=== PATIENT | male | born 1995 | race Caucasian/White ===

== ENCOUNTER 2020-07-10 18:32 | Emergency (ER) | payer OTHER ==
[~2020-07-10 18:32] MED LIST: AMOXICILLIN500 MG PO; IBUPROFEN800 MG PO; LODINE CAP 300300 MG PO; viscous Lidocaine
[2020-07-10] MEDS ORDERED: Viscous Lidocaine 2% TOP (20:16)
[2020-07-10] MEDS ORDERED: CLEOCIN HCL300 MG PO (20:16)
[2020-07-10] MEDS ORDERED: IBUPROFEN600 MG PO (20:16)
== END 2020-07-10 20:20 | disposition home or self-care (01) ==
LOC: ER1 18:32
DX: K04.7 Periapical abscess without sinus (principal); R68.84 Jaw pain; F17.210 Nicotine dependence, cigarettes, uncomplicated
CPT/HCPCS: 99282

== ENCOUNTER 2021-01-20 11:40 | Emergency (ER) | payer OTHER ==
[~2021-01-20 11:40] MED LIST changes: +CLEOCIN HCL300 MG PO; +IBUPROFEN600 MG PO; +Viscous Lidocaine 2% TOP
== END 2021-01-20 13:38 | disposition home or self-care (01) ==
LOC: ER1 11:40
DX: J20.9 Acute bronchitis, unspecified (principal); Z20.822 Contact with and (suspected) exposure to COVID-19
CPT/HCPCS: 71045; 99285; U0002